=== PATIENT | female | born 1980 | race Caucasian/White ===

== ENCOUNTER 2016-09-01 00:05 | Emergency (ER) | payer MEDICAID ==
[2016-09-01 00:23] LABS: BILIRUBIN,URINE NEGATIVE (NEGATIVE); PH,URINE 6.5 PH (5.0-7.5)
[2016-09-01 00:24] LABS: HCG UR QUAL NEGATIVE; UA w/ MICROSCOPIC CHARGE YES
[2016-09-01 00:31] LABS: UR CULTURE IF IND INDICATED; WBC,URINE >25 /HPF (0-5)
--- NOTE | 2016-09-01 00:48 | ED Physician Documentation ---
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 Similar symptoms before: Has not had sx before Recently seen: Not recently seen - Additional information Additional information: c/o five days of pelvic/suprapubic pain, urinary urgency, frequency, and sensation of incomplete voiding Review of Systems Constitutional: denies: Fever GI: denies: Abdominal Pain, Nausea, Vomiting : reports: Dysuria, Frequency Musculoskeletal: denies: Back pain PD PAST MEDICAL HISTORY - Past Medical History Past Medical History: Yes Psych: Depression, Anxiety - Past Surgical History 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 - Present Medications Home Medications: Ambulatory Orders Medication Instructions Recorded Confirmed Sertraline [Zoloft] 1 tab PO DAILY 08/26/15 09/01/16 Nitrofurantoin [Macrobid] 100 mg PO BID #9 capsule 09/01/16 - Allergies Allergies/Adverse Reactions: Allergies Allergy/AdvReac Type Severity Reaction Status Date / Time No Known Drug Allergies Allergy Verified 09/01/16 00:07 - Social History Does the pt smoke?: Yes Smoking Status: Current every day smoker Does the pt drink ETOH?: Yes Does the pt have substance abuse?: No - Immunizations Immunizations are current?: Yes - POLST Patient has POLST: No PD ED PE NORMAL - Vitals Vital signs reviewed: Yes - General General: Alert and oriented X 3, No acute distress, Well developed/nourished - Abdomen Abdomen: Soft, Non tender - Back Back: No CVA TTP Results - Vitals Vitals: Vital Signs - 24 hr 09/01/16 09/01/16 00:08 01:20 Temperature 36.2 C L 36.5 C Heart Rate 86 79 Respiratory 16 15 Rate Blood Pressure 134/57 H 102/83 H O2 Saturation 99 99 Oxygen O2 Source Room air - Labs Labs: Laboratory Tests 09/01/16 00:15 Urine Color YELLOW Urine Clarity SL. CLOUDY Urine pH 6.5 Ur Specific [place] 1.010 Urine Protein TRACE Urine Glucose (UA) NEGATIVE Urine Ketones NEGATIVE Urine Occult Blood MODERATE H Urine Nitrite NEGATIVE Urine Bilirubin NEGATIVE Urine Urobilinogen 0.2 (NORMAL) Ur Leukocyte Esterase LARGE H Urine RBC 6-10 H Urine WBC >25 H Ur Squamous Epith Cells FEW Squamous Urine Bacteria Few Ur Microscopic Review INDICATED Urine Culture Comments INDICATED Urine HCG, Qual NEGATIVE PD MEDICAL DECISION MAKING - ED course Complexity details: reviewed results, considered differential, d/w patient Departure - Departure Disposition: 01 Home, Self Care Clinical Impression: Urinary tract infection Qualifiers: Urinary tract infection type: acute cystitis Hematuria presence: with hematuria Qualified Code(s): N30.01 - Acute cystitis with hematuria Condition: Good Instructions: ED UTI Cystitis Female Follow-Up: Nohemy Earl ARNP [Primary Care Provider] - (3-4 days if symptoms have not resolved) Prescriptions: Nitrofurantoin [Macrobid] 100 mg PO BID #9 capsule Discharge Date/Time: 09/01/16 01:24
[2016-09-01] MEDS ORDERED: NITROFURANTOIN MACRO 100 MG CAPSULE PO STA (01:16)
[2016-09-01] MEDS ORDERED: PHENAZOPYRIDINE 100 MG TABLET PO STA (01:17)
[2016-09-01] MEDS ORDERED: NITROFURANTOIN MACRO 100 MG CAPSULE PO ONE (01:19)
[2016-09-01 01:20] VITALS: BP 102/83
[2016-09-01] MEDS ORDERED: PHENAZOPYRIDINE 100 MG TABLET PO ONE (01:20)
== END 2016-09-01 01:24 | disposition home or self-care (01) ==
LOC: ED 00:05
DX: N30.01 Acute cystitis with hematuria (principal); F17.200 Nicotine dependence, unspecified, uncomplicated
CPT/HCPCS: 81001; 81025; 87077; 87086; 87181; 99283; A9270; 81003; 87491; 87591

== ENCOUNTER 2016-11-07 13:30 | Emergency (ER) | payer MEDICAID ==
[2016-11-07] MEDS ORDERED: BUPIVACAINE 0.5% PF 30 ML VIAL SUBQ STA (15:18)
[2016-11-07] MEDS ORDERED: KETOROLAC 60 MG/2 ML VIAL IM STA (15:18)
[2016-11-07] MEDS ORDERED: BUPIVACAINE 0.5% PF 30 ML VIAL ONE (16:04)
[2016-11-07] MEDS ORDERED: KETOROLAC 60 MG/2 ML VIAL ONE (16:04)
[2016-11-07] MEDS ORDERED: oxyCOD/ACETAMIN 5 MG/325 MG TABLET PO STA (16:57)
[2016-11-07] MEDS ORDERED: CYCLOBENZAPRINE 10 MG TABLET PO STA (16:57)
[2016-11-07] MEDS ORDERED: oxyCOD/ACETAMIN 5 MG/325 MG TABLET PO ONE (17:17)
[2016-11-07] MEDS ORDERED: CYCLOBENZAPRINE 10 MG TABLET PO ONE (17:17)
--- NOTE | 2016-11-07 17:44 | ED Physician Documentation ---
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 etc PMD sent her to ER for trigger pt injection Review of Systems Constitutional: denies: Fever, Chills Cardiac: denies: Chest pain / pressure Respiratory: denies: Dyspnea GI: denies: Abdominal Pain : denies: Incontinent, Now EGA Musculoskeletal: reports: Back pain Neurologic: denies: Focal weakness, Numbness Endocrine: denies: Easy bruising / bleeding Immunocompromised: denies: Immunocompromised PD PAST MEDICAL HISTORY - Past Medical History Psych: Depression, Anxiety - Past Surgical History 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 - Present Medications Home Medications: Ambulatory Orders Medication Instructions Recorded Confirmed Sertraline [Zoloft] 1 tab PO DAILY 08/26/15 09/01/16 Nitrofurantoin [Macrobid] 100 mg PO BID #9 capsule 09/01/16 Cyclobenzaprine [Flexeril] 10 mg PO TID PRN #20 tablet 11/07/16 Indomethacin [Indocin] 25 mg PO BIDWM PRN #20 capsule 11/07/16 Lidocaine Patch 5% [Lidoderm Patch] 1 each TOP DAILY PRN #10 patch 11/07/16 - Allergies Allergies/Adverse Reactions: Allergies Allergy/AdvReac Type Severity Reaction Status Date / Time No Known Drug Allergies Allergy Verified 09/01/16 00:07 - Social History Does the pt smoke?: Yes Smoking Status: Current every day smoker Does the pt drink ETOH?: Yes Does the pt have substance abuse?: No - Immunizations Immunizations are current?: Yes - POLST Patient has POLST: No PD ED PE NORMAL - Vitals Vital signs reviewed: Yes - General General: Alert and oriented X 3 - Neck Neck: Supple, no meningeal sign - Cardiac Cardiac: RRR - Respiratory Respiratory: No respiratory distress, Clear bilaterally - Abdomen Abdomen: Soft, Non tender, Other (no pulsatile mass) - Back Back: No spinal TTP (and no focal redness warmth or swelling) - Derm Derm: Normal color - Neuro Neuro: Alert and oriented 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, 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, No motor deficit, No sensory deficit, Other (hip flexion knee ext foot dorsi plantar and great toe ext all 5/ 5, patellar DTR 3/4 left and 2-/4 right but pt states prior surgery on knee, no clinus, neg SLR) Results - Vitals Vitals: Vital Signs - 24 hr 11/07/16 11/07/16 13:43 14:42 Temperature 36.6 C 36.2 C L Heart Rate 93 83 Respiratory 18 16 Rate Blood Pressure 116/75 107/67 O2 Saturation 98 100 Oxygen O2 Source Room air PD MEDICAL DECISION MAKING - ED course ED course: acute on chronic exac back pain no red flags no relief with toradol so also gave trigger pt injection one percocet and flexeril will dc with lido flexeril and indocin Departure - Departure Disposition: 01 Home, Self Care Clinical Impression: Back pain Qualifiers: Back pain location: low back pain Chronicity: acute Back pain laterality: unspecified Sciatica presence: with sciatica Sciatica laterality: sciatica of right side Qualified Code(s): M54.41 - Lumbago with sciatica, right side Condition: Good Instructions: ED Sciatica, ED Low Back Pain Injury Follow-Up: Nohemy Earl LEAD DRIVER [Primary Care Provider] - Prescriptions: Cyclobenzaprine [Flexeril] 10 mg PO TID PRN #20 tablet PRN Reason: Spasms Indomethacin [Indocin] 25 mg PO BIDWM PRN #20 capsule PRN Reason: Pain Lidocaine Patch 5% [Lidoderm Patch] 1 each TOP DAILY PRN #10 patch PRN Reason: Pain Forms: Activity restrictions
[2016-11-07 18:13] VITALS: BP 122/67
== END 2016-11-07 18:04 | disposition home or self-care (01) ==
LOC: ED 13:30
DX: M54.41 Lumbago with sciatica, right side (principal); G89.29 Other chronic pain; F17.200 Nicotine dependence, unspecified, uncomplicated
CPT/HCPCS: 20552; 96372; 99283; A9270

== ENCOUNTER 2017-01-23 18:01 | Emergency (ER) | payer MEDICAID ==
--- NOTE | 2017-01-23 19:06 | ED Physician Documentation ---
PD HPI URI - Stated complaint Stated Complaint: CHEST PX - Chief complaint Chief Complaint: Resp - History obtained from History obtained from: Patient - History of Present Illness Timing - onset: How many weeks ago (2) Timing duration: Weeks (2) Timing details: Gradual onset, Still present (had URI symptoms head and chest, then improving with some cough still. Now with cough worsening over few days, with purulent sputum and harsh cough.) Associated symptoms: Productive cough, Chest pain, Dyspnea. No: Fever, Chills, Sore throat, Hemoptysis, NVD, Bilateral edema Contributing factors: No: Sick contact, Travel, Immunocompromised Similar symptoms before: Has not had sx before Recently seen: Not recently seen Review of Systems Constitutional: reports: Chills, Myalgias. denies: Fever Nose: reports: Congestion. 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 - Present Medications Home Medications: Ambulatory Orders Medication Instructions Recorded Confirmed Sertraline [Zoloft] 1 tab PO DAILY 08/26/15 01/23/17 Albuterol Sulf [Ventolin Hfa 1 - 2 puffs INH Q4HR PRN #1 inhaler 01/23/17 Inhaler] Cephalexin [Keflex] 500 mg PO TID #21 capsule 01/23/17 Dexamethasone [Decadron] 4 mg PO DAILY #5 tablet 01/23/17 guaiFENesin/CODEINE [Robitussin AC] 10 ml PO Q6H PRN #240 ml 01/23/17 - Allergies Allergies/Adverse Reactions: Allergies Allergy/AdvReac Type Severity Reaction Status Date / Time No Known Drug Allergies Allergy Verified 09/01/16 00:07 - Social History Does the pt smoke?: Yes Smoking Status: Current every day smoker Does the pt drink ETOH?: Yes Does the pt have substance abuse?: No - Immunizations Immunizations are current?: Yes - POLST Patient has POLST: No PD ED PE NORMAL - Vitals Vital signs reviewed: Yes - General General: Alert and oriented X 3, No acute distress, Well developed/nourished - HEENT HEENT: Ears normal, Pharynx benign - Neck Neck: Supple, no meningeal sign, No adenopathy - Cardiac Cardiac: RRR, No murmur - Respiratory Respiratory: No: Clear bilaterally (some scattered wheezing sounds. No wet/ coarse sounds. ) - Abdomen Abdomen: Soft, Non tender - Back Back: No CVA TTP - Derm Derm: Normal color, Warm and dry, No rash - Extremities Extremities: No edema, No calf tenderness / cord - Neuro Neuro: Alert and oriented X 3, No motor deficit, Normal speech Results - Vitals Vitals: Oxygen O2 Source Room air - EKG (time done) 18:15 Rate: Rate (enter#) (68) Rhythm: NSR [place]: Normal Intervals: Normal CT QRS: Normal Ischemia: Normal ST segments. No: ST elevation c/w ischemia, ST depression, T wave inversion PD MEDICAL DECISION MAKING - ED course Complexity details: reviewed results, considered differential (uri initially with now worsening cough after 2 weeks, consider secondary infection. ), d/w patient Departure - Departure Disposition: 01 Home, Self Care Clinical Impression: Upper respiratory infection Qualifiers: URI type: unspecified URI Qualified Code(s): J06.9 - Acute upper respiratory infection, unspecified Condition: Stable Record reviewed to determine appropriate education?: Yes Instructions: ED Upper Resp Infec Abx Tx Follow-Up: Nohemy Earl ARNP [Primary Care Provider] - Prescriptions: Albuterol Sulf [Ventolin Hfa Inhaler] 1 - 2 puffs INH Q4HR PRN #1 inhaler PRN Reason: Shortness Of Air/Wheezing Cephalexin [Keflex] 500 mg PO TID #21 capsule Dexamethasone [Decadron] 4 mg PO DAILY #5 tablet guaiFENesin/CODEINE [Robitussin AC] 10 ml PO Q6H PRN #240 ml PRN Reason: Cough Comments: Continue with decreased smoking. In fact try to quit if he can. Use albuterol inhaler 2 puffs 4 times a day and extra times if needed for the wheezing and cough. Add cough medicine if needed. Use Decadron steroid anti-inflammatory for 5 more days to reduce bronchial inflammation. Use cephalexin as prescribed for potential bacterial infection given the duration and now worsening of your symptoms. Recheck if not improved over the next 3-5 days. Discharge Date/Time: 01/23/17 20:26
[2017-01-23] MEDS ORDERED: ALBUTEROL NEB 2.5 MG/3 ML INH STA (19:26)
[2017-01-23] MEDS ORDERED: DEXAMETHASONE 10 MG/ML VIAL PO STA (19:26)
[2017-01-23] MEDS ORDERED: CEPHALEXIN 250 MG CAPSULE PO STA (19:26)
[2017-01-23] MEDS ORDERED: guaiFENesin/CODEINE 5 ML UDC PO STA (19:26)
[2017-01-23 19:27] VITALS: BP 122/71
[2017-01-23] MEDS ORDERED: guaiFENesin/CODEINE 5 ML UDC ONE (19:36)
[2017-01-23] MEDS ORDERED: CEPHALEXIN 250 MG CAPSULE PO ONE (19:36)
[2017-01-23] MEDS ORDERED: DEXAMETHASONE 10 MG/ML VIAL ONE (19:36)
[2017-01-23] MEDS ORDERED: ALBUTEROL NEB 2.5 MG/3 ML INH ONE (19:46)
== END 2017-01-23 20:26 | disposition home or self-care (01) ==
LOC: ED 18:01
DX: J06.9 Acute upper respiratory infection, unspecified (principal); F17.200 Nicotine dependence, unspecified, uncomplicated
CPT/HCPCS: 93005; 94640; 99283; A9270; J7613

== ENCOUNTER 2017-04-23 13:42 | Emergency (ER) | payer MEDICAID ==
[2017-04-23] MEDS ORDERED: CYCLOBENZAPRINE 10 MG TABLET PO STA (14:38)
[2017-04-23] MEDS ORDERED: KETOROLAC 60 MG/2 ML VIAL IM STA (14:38)
[2017-04-23] MEDS ORDERED: LIDOCAINE PATCH 5% TOP STA (14:38)
--- NOTE | 2017-04-23 14:45 | ED Physician Documentation ---
History of Present Illness - Stated complaint Stated Complaint: BACK PX/FLU LIKE SX - Chief complaint Chief Complaint: Back Pain - Additonal information Additional information: hx from pt 36 y/o f hx of back pain - no fx HNP etc juts acts up sometimes has been seen for same in past txed with NSAIDS lido flexeril trigger pt injections etc yesterday developed GI sx (NVD subj fever myalgias like other people at work, no travel or bad food) and her back is acting up no numbness or [place]kan[place] no incontinence no DM or IVDA took zofran which helped GI sx Review of Systems Constitutional: denies: Fever Cardiac: denies: Chest pain / pressure Respiratory: denies: Dyspnea GI: reports: Abdominal Pain (upper), Nausea, Vomiting, Diarrhea : reports: Control (tubal). 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 - Present Medications Home Medications: Ambulatory Orders Medication Instructions Recorded Confirmed Sertraline [Zoloft] 1 tab PO DAILY 08/26/15 04/23/17 Cyclobenzaprine [Flexeril] 10 mg PO TID PRN #20 tablet 04/23/17 Indomethacin [Indocin] 25 mg PO TIDWM PRN #20 capsule 04/23/17 Lidocaine Patch 5% [Lidoderm Patch] 1 each TOP DAILY PRN #10 patch 04/23/17 Ondansetron Odt [Zofran] 4 mg TL Q6H PRN #10 tablet 04/23/17 - Allergies Allergies/Adverse Reactions: Allergies Allergy/AdvReac Type Severity Reaction Status Date / Time No Known Drug Allergies Allergy Verified 04/23/17 13:49 - Social History Does the pt smoke?: Yes Smoking Status: Current every day smoker Does the pt drink ETOH?: Yes Does the pt have substance abuse?: No - Immunizations Immunizations are current?: Yes - POLST Patient has POLST: No PD ED PE NORMAL - Vitals Vital signs reviewed: Yes - Cardiac Cardiac: RRR - Respiratory Respiratory: No respiratory distress, Clear bilaterally - Abdomen Abdomen: Soft, Other (mild upper abd [place] s peritoneal signs) - Derm Derm: Normal color - Neuro Neuro: Alert and oriented X 3, 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, No motor deficit, No sensory deficit, Other (neg SLR, no numbness or saddle anesthesia, no clonus, foot dorsi plantar great toe ext hip flex knee ext 5/5) Results - Vitals Vitals: Vital Signs - 24 hr 04/23/17 13:46 Temperature 36.8 C Heart Rate 98 Respiratory 20 Rate Blood Pressure 120/69 O2 Saturation 100 Oxygen O2 Source Room air - Labs Labs: Laboratory Tests 04/23/17 14:40 Urine Color YELLOW Urine Clarity CLEAR Urine pH 6.0 Ur Specific [place] 1.025 Urine Protein NEGATIVE Urine Glucose (UA) NEGATIVE Urine Ketones TRACE Urine Occult Blood TRACE-INTA Urine Nitrite NEGATIVE Urine Bilirubin NEGATIVE Urine Urobilinogen 0.2 (NORMAL) Ur Leukocyte Esterase NEGATIVE Ur Microscopic Review NOT INDICATED Urine Culture Comments NOT INDICATED Urine HCG, Qual NEGATIVE PD MEDICAL DECISION MAKING - ED course ED course: healthy not 36 y/o female with waht sounds like viral gastro and acute exac of ongoing LBP without neuro deficits or red flags for epidural abscess or cauda equina Departure - Departure Disposition: 01 Home, Self Care Clinical Impression: Gastroenteritis Back pain Qualifiers: Back pain location: low back pain Chronicity: unspecified Back pain laterality : unspecified Sciatica presence: without sciatica Qualified Code(s): M54.5 - Low back pain Condition: Good Instructions: ED Neck Back Pain General, ED Gastroenteritis Viral Prescriptions: Cyclobenzaprine [Flexeril] 10 mg PO TID PRN #20 tablet PRN Reason: Spasms Indomethacin [Indocin] 25 mg PO TIDWM PRN #20 capsule PRN Reason: back pain Lidocaine Patch 5% [Lidoderm Patch] 1 each TOP DAILY PRN #10 patch PRN Reason: Pain Ondansetron Odt [Zofran] 4 mg TL Q6H PRN #10 tablet PRN Reason: Nausea / Vomiting Forms: Activity restrictions
[2017-04-23 14:50] LABS: GLUCOSE, URINE (UA) NEGATIVE (NEGATIVE); KETONES,URINE (UA) TRACE mg/dL (NEGATIVE); LEUKOCYTE ESTERASE, URINE NEGATIVE (NEGATIVE); NITRITE,URINE NEGATIVE (NEGATIVE); OCCULT BLOOD,URINE TRACE-INTA (NEGATIVE); PROTEIN,URINE NEGATIVE (NEGATIVE); UROBILINOGEN,URINE 0.2 (NORMAL) E.U./dL (NORMAL)
[2017-04-23 14:55] LABS: BILIRUBIN,URINE NEGATIVE (NEGATIVE); CLARITY,URINE CLEAR (CLEAR); HCG UR QUAL NEGATIVE; ICTOTEST,URINE NEGATIVE
[2017-04-23 15:30] VITALS: BP 109/85
== END 2017-04-23 15:44 | disposition home or self-care (01) ==
LOC: ED 13:42
DX: K52.9 Noninfective gastroenteritis and colitis, unspecified (principal); M54.5 Low back pain; F17.200 Nicotine dependence, unspecified, uncomplicated
CPT/HCPCS: 81003; 81025; 96372; 99283; A9270; 81001; 87086

== ENCOUNTER 2017-10-15 14:16 | Emergency (ER) | payer MEDICAID ==
[2017-10-15 14:24] VITALS: BP 117/81
[2017-10-15] MEDS ORDERED: PROPARACAINE 0.5% OPHTH DROPS 15 ML RIGHTEYE STA (15:29)
--- NOTE | 2017-10-15 15:58 | ED Physician Documentation ---
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 - Present Medications Home Medications: Ambulatory Orders Medication Instructions Recorded Confirmed Sertraline [Zoloft] 2 tab PO DAILY 08/26/15 04/23/17 Erythromycin Base [Erythromycin] 1 applic OP Q4H #1 tub 10/15/17 - Allergies Allergies/Adverse Reactions: Allergies Allergy/AdvReac Type Severity Reaction Status Date / Time No Known Drug Allergies Allergy Verified 10/15/17 14:24 - Social History Does the pt smoke?: Yes Smoking Status: Current every day smoker Does the pt drink ETOH?: Yes Does the pt have substance abuse?: No - Immunizations Immunizations are current?: Yes - POLST Patient has POLST: No PD ED PE NORMAL - Vitals Vital signs reviewed: Yes - General General: Alert and oriented X 3 - HEENT HEENT: PERRL (R eye mildly injected, no dc now but was crusted earlier per pt, no FB even under lid, no abrasion with flourescein), Ears normal - Cardiac Cardiac: RRR - Respiratory Respiratory: No respiratory distress, Clear bilaterally Results - Vitals Vitals: Vital Signs - 24 hr 10/15/17 14:20 Temperature 36.8 C Heart Rate 85 Respiratory 14 Rate Blood Pressure 117/81 H O2 Saturation 98 Oxygen O2 Source Room air PD MEDICAL DECISION MAKING - Sepsis Event Vital Signs: Vital Signs - 24 hr 10/15/17 14:20 Temperature 36.8 C Heart Rate 85 Respiratory 14 Rate Blood Pressure 117/81 H O2 Saturation 98 Oxygen O2 Source Room air Departure - Departure Disposition: 01 Home, Self Care Clinical Impression: Conjunctivitis Qualifiers: Conjunctivitis type: acute Acute conjunctivitis type: unspecified Laterality: right Qualified Code(s): H10.31 - Unspecified acute conjunctivitis, right eye Condition: Good Instructions: ED Conjunctivitis Nonspecific Prescriptions: Erythromycin Base [Erythromycin] 1 applic OP Q4H #1 tub Forms: Activity restrictions
== END 2017-10-15 16:23 | disposition home or self-care (01) ==
LOC: ED 14:16
DX: H10.31 Unspecified acute conjunctivitis, right eye (principal); F17.200 Nicotine dependence, unspecified, uncomplicated
CPT/HCPCS: 99282; 99283; J3490

== ENCOUNTER 2017-12-03 14:14 | Emergency (ER) | payer MEDICAID ==
[2017-12-03 15:00] LABS: BASOPHILS % (AUTO) 0.4 %; EOSINOPHILS # (AUTO) 0.1 10^3/uL (0.0-0.7); EOSINOPHILS % (AUTO) 1.2 %; HGB - HEMOGLOBIN 12.5 g/dL (12.0-16.0); LYMPHOCYTES # (AUTO) 1.9 10^3/uL (1.5-3.5); LYMPHOCYTES % (AUTO) 26.1 %; MEAN CORPUSCULAR HEMOGLOBIN 30.3 pg (27.0-31.0); MEAN CORPUSCULAR HGB CONC 34.6 g/dL (32.0-36.0); MEAN CORPUSCULAR VOLUME 87.6 fL (81.0-99.0); MONOCYTES # (AUTO) 0.6 10^3/uL (0.0-1.0); NEUTROPHILS # (AUTO) 4.6 10^3/uL (1.5-6.6); NEUTROPHILS % (AUTO) 64.3 %; PLT - PLATELET COUNT 232 10^3/uL (130-450); RED BLOOD COUNT 4.14 10^6/uL (4.20-5.40); RED CELL DISTRIBUTION WIDTH 13.1 % (12.0-15.0); WHITE BLOOD COUNT 7.2 x10^3/uL (4.8-10.8)
--- NOTE | 2017-12-03 15:06 | XRAY Report ---
Procedure Date: 12/03/2017 Accession Number: [id number] / [id number] Procedure: XR - Chest 2 View X-Ray CPT Code: 48122 FULL RESULT: EXAM: CHEST RADIOGRAPHY EXAM DATE: 12/03/2017 02:46 PM. CLINICAL HISTORY: Chest pain. COMPARISON: Chest x-ray 05/20/2008. TECHNIQUE: 2 views. FINDINGS: Lungs/Pleura: No focal opacities evident. No pleural effusion. No pneumothorax. Normal volumes. Mediastinum: Heart and mediastinal contours are unremarkable. Other: None. IMPRESSION: Normal 2-view chest radiography. RADIA
[2017-12-03 15:11] LABS: ALBUMIN 3.8 g/dL (3.2-5.5); ALBUMIN/GLOBULIN RATIO 1.2 (1.0-2.2); BILIRUBIN,TOTAL 0.6 mg/dL (0.2-1.0); CALCIUM 9.1 mg/dL (8.5-10.3); CREATININE 1.1 mg/dL (0.4-1.0)
--- NOTE | 2017-12-03 15:42 | ED Physician Documentation ---
PD HPI CHEST PAIN - Stated complaint Stated Complaint: CHEST PAIN - Chief complaint Chief Complaint: Cardiac - History obtained from History obtained from: Patient - History of Present Illness Timing - onset: How many hours ago (2.5) Timing - onset during: Other (at work today) Timing - duration: Hours (2.5) Timing - details: Abrupt onset Pain level max: 10 Pain level now: 10 Quality: Aching Location: Right chest Radiation: Right upper extremity Improved by: Nothing Worsened by: Other (taking a deep breath or moving) Associated symptoms: Feeling faint / dizzy. No: Shortness of air, Diaphoresis, Nausea, Vomiting, Palpitations, Cough Similar symptoms before: Other (states similar symptoms a few days ago, resolved after about an hour) - Additional information Additional information: has a history of anxiety and panic attacks. Symptoms today started after a verbal argument with coworkers. She states it was a very heated argument. 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 - Present Medications Home Medications: Ambulatory Orders Medication Instructions Recorded Confirmed Sertraline [Zoloft] 2 tab PO DAILY 08/26/15 04/23/17 Erythromycin Base [Erythromycin] 1 applic OP Q4H #1 tub 10/15/17 LORazepam [Ativan] 0.5 mg PO Q6H PRN #7 tablet 12/03/17 - Allergies Allergies/Adverse Reactions: Allergies Allergy/AdvReac Type Severity Reaction Status Date / Time No Known Drug Allergies Allergy Verified 12/03/17 14:25 - Living Situation Living Arrangement: reports: At home - Social History Does the pt smoke?: Yes Smoking Status: Current every day smoker Does the pt drink ETOH?: Yes Does the pt have substance abuse?: No - Family History Family history: reports: Non contributory - Immunizations Immunizations are current?: Yes - POLST Patient has POLST: No PD ED PE NORMAL - Vitals Vital signs reviewed: Yes - General General: Alert and oriented X 3, Other (appears anxious) - HEENT HEENT: Moist mucous membranes - Neck Neck: Supple, no meningeal sign - Cardiac Cardiac: RRR, Strong equal pulses - Respiratory Respiratory: No respiratory distress, Clear bilaterally - Abdomen Abdomen: Soft, Non tender, Non distended - Back Back: No spinal TTP - Derm Derm: Warm and dry, No rash - Extremities Extremities: No edema, No calf tenderness / cord - Neuro Neuro: Alert and oriented X 3, No motor deficit, No sensory deficit Results - Vitals Vitals: Vital Signs - 24 hr 12/03/17 12/03/17 12/03/17 14:19 15:41 16:11 Temperature 36.7 C Heart Rate 94 71 82 Respiratory 18 14 18 Rate Blood Pressure 138/76 H 139/93 H 134/72 H O2 Saturation 100 100 99 Oxygen O2 Source Room air - EKG (time done) 1423 Rate: Rate (enter#) (92) Rhythm: NSR [place]: Normal Intervals: Normal DC QRS: Normal Ischemia: Normal ST segments - Labs Labs: Laboratory Tests 12/03/17 12/03/17 12/03/17 14:50 14:50 14:50 WBC 7.2 RBC 4.14 L Hgb 12.5 Hct 36.2 L MCV 87.6 MCH 30.3 MCHC 34.6 RDW 13.1 Plt Count 232 MPV 9.0 Neut # (Auto) 4.6 Lymph # (Auto) 1.9 [place] # (Auto) 0.6 Eos # (Auto) 0.1 Baso # (Auto) 0.0 Absolute Nucleated RBC 0.00 Nucleated RBC % 0.0 Sodium 135 Potassium 3.7 Chloride 101 Carbon Dioxide 26 Anion Gap 8.0 BUN 11 Creatinine 1.1 H Estimated GFR (MDRD) 56 L Glucose 99 Calcium 9.1 Total Bilirubin 0.6 AST 28 ALT 20 Alkaline Phosphatase 63 Troponin I < 0.04 Total Protein 7.0 Albumin 3.8 Globulin 3.2 Albumin/Globulin Ratio 1.2 Lipase 22 - Rads (name of study) cxr Radiology: Prelim report reviewed, EMP read contemporaneously, See rad report ( normal) PD MEDICAL DECISION MAKING - ED course Complexity details: reviewed results, re-evaluated patient, considered differential (No ST elevation [place], no aortic dissection, no PE, no tension pneumothorax, no aortic aneurysm), d/w patient ED course: Patient is a 37-year-old female who presents to the emergency department with chest pain after an argument with coworkers. Symptoms resolved with Ativan in the emergency department. No acute findings on laboratory testing, EKG or chest x-ray. Paresthesias is also resolved. We will treat her for anxiety and follow- up with her doctor. Patient counseled regarding signs and symptoms for which I believe and urgent re-evaluation would be necessary. Patient with good understanding of and agreement to plan and is comfortable going home at this time This document was made in part using voice recognition software. While efforts are made to proofread this document, sound alike and grammatical errors may occur. - Sepsis Event Vital Signs: Vital Signs - 24 hr 12/03/17 12/03/17 12/03/17 14:19 15:41 16:11 Temperature 36.7 C Heart Rate 94 71 82 Respiratory 18 14 18 Rate Blood Pressure 138/76 H 139/93 H 134/72 H O2 Saturation 100 100 99 Oxygen O2 Source Room air Departure - Departure Disposition: 01 Home, Self Care Clinical Impression: Anxiety Chest pain Qualifiers: Chest pain type: unspecified Qualified Code(s): R07.9 - Chest pain, unspecified Condition: Good Instructions: ED Stress React, ED Chest Pain NonCardiac Follow-Up: your,doctor in 1 week [Other] Prescriptions: LORazepam [Ativan] 0.5 mg PO Q6H PRN #7 tablet PRN Reason: Anxiety Comments: Return if you worsen. This should continue to improve today. Do not drive or operate heavy machinery while on ativan. Discharge Date/Time: 12/03/17 16:14
[2017-12-03] MEDS ORDERED: LORazepam 0.5 MG TABLET PO STA (15:56)
[2017-12-03 16:14] VITALS: BP 134/72
== END 2017-12-03 16:14 | disposition home or self-care (01) ==
LOC: ED 14:14
DX: F41.9 Anxiety disorder, unspecified (principal); R07.9 Chest pain, unspecified; F17.200 Nicotine dependence, unspecified, uncomplicated
CPT/HCPCS: 36415; 71046; 80053; 83690; 84484; 85025; 93005; 99283; A9270

== ENCOUNTER 2017-12-08 08:40 | Emergency (ER) | payer MEDICAID ==
[2017-12-08 08:52] VITALS: BP 117/78
--- NOTE | 2017-12-08 12:02 | ED Physician Documentation ---
PD HPI HEENT - Stated complaint Stated Complaint: MOUTH PX - Chief complaint Chief Complaint: Heent - History obtained from History obtained from: Patient - History of Present Illness Timing - onset: How many days ago (several) Timing - duration: Days Timing - details: Gradual onset, Still present Location: Tooth (right lower molar that has been broken/decayed is starting to get swelling and pain to it. Called Dentist and has appt for December.) Improves: Nothing Worsens: Swalllowing, Temperatures Associated symptoms: No: Fever, Congestion, Swollen nodes, Facial swelling Recently seen: Not recently seen Review of Systems Constitutional: denies: Fever, Chills, Myalgias Nose: denies: Rhinorrhea / runny nose, Congestion Throat: denies: Sore throat Respiratory: denies: Cough GI: denies: Nausea, Vomiting, Diarrhea Skin: denies: Rash, Lesions PD PAST MEDICAL HISTORY - Past Medical History Past Medical History: Yes Cardiovascular: None Respiratory: None Psych: Depression, Anxiety - Past Surgical History 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 - Present Medications Home Medications: Ambulatory Orders Medication Instructions Recorded Confirmed Sertraline [Zoloft] 2 tab PO DAILY 08/26/15 12/08/17 Erythromycin Base [Erythromycin] 1 applic OP Q4H #1 tub 10/15/17 12/08/17 LORazepam [Ativan] 0.5 mg PO Q6H PRN #7 tablet 12/03/17 12/08/17 Clindamycin HCl [Cleocin HCl] 300 mg PO TID #21 capsule 12/08/17 Ibuprofen [Motrin] 600 mg PO TID #30 tab 12/08/17 Tramadol HCl 50 mg PO Q6H PRN #15 tablet 12/08/17 - Allergies Allergies/Adverse Reactions: Allergies Allergy/AdvReac Type Severity Reaction Status Date / Time No Known Drug Allergies Allergy Verified 12/03/17 14:25 - Social History Does the pt smoke?: Yes Smoking Status: Current every day smoker Does the pt drink ETOH?: Yes Does the pt have substance abuse?: No - Immunizations Immunizations are current?: Yes - POLST Patient has POLST: No PD ED PE NORMAL - Vitals Vital signs reviewed: Yes - General General: Alert and oriented X 3, No acute distress, Well developed/nourished - HEENT HEENT: Pharynx benign. No: Dentition benign (teeth generally not too bad. There is a broken and decayed tooth right lower molar with swelling and tenderness of the gum. ) - Neck Neck: Supple, no meningeal sign, No adenopathy - Cardiac Cardiac: RRR, No murmur - Respiratory Respiratory: Clear bilaterally - Derm Derm: Normal color, Warm and dry - Neuro Neuro: Alert and oriented X 3, No motor deficit, Normal speech Results - Vitals Vitals: Oxygen O2 Source Room air PD MEDICAL DECISION MAKING - ED course Complexity details: considered differential, d/w patient - Sepsis Event Vital Signs: Oxygen O2 Source Room air Departure - Departure Disposition: Home, Self Care Clinical Impression: Dental abscess Condition: Stable Record reviewed to determine appropriate education?: Yes Instructions: ED Abscess Dental Prescriptions: Clindamycin HCl [Cleocin HCl] 300 mg PO TID #21 capsule Ibuprofen [Motrin] 600 mg PO TID #30 tab Tramadol HCl 50 mg PO Q6H PRN #15 tablet PRN Reason: Pain Comments: Rinse with antiseptic a few times a day to cleanse out the tooth socket. Use clindamycin as directed for a week for the infection. Ibuprofen 3 times a day for the inflammation. Add Tylenol and/or tramadol if needed for pain. Follow- up with the dentist as soon as available. That will be the definitive treatment for this after the infection clears, so it does not get reinfected. Discharge Date/Time: 12/08/17 12:28
[2017-12-08] MEDS ORDERED: CLINDAMYCIN 150 MG CAPSULE PO STA (12:21)
[2017-12-08] MEDS ORDERED: IBUPROFEN 600 MG TABLET PO STA (12:21)
== END 2017-12-08 12:28 | disposition home or self-care (01) ==
LOC: ED 08:40
DX: K04.7 Periapical abscess without sinus (principal); F17.200 Nicotine dependence, unspecified, uncomplicated
CPT/HCPCS: 99281; 99283; A9270

== ENCOUNTER 2018-05-15 20:26 | Emergency (ER) | payer MEDICAID ==
--- NOTE | 2018-05-15 22:02 | ED Physician Documentation ---
PD HPI HEENT - Stated complaint Stated Complaint: TOOTH PX - Chief complaint Chief Complaint: Heent - History obtained from History obtained from: Patient - History of Present Illness Timing - onset: How many days ago (4) Timing - duration: Days (4) Pain level now: 7 Location: Tooth Improves: Nothing Worsens: Swalllowing, Other (palpation) Recently seen: Not recently seen - Additional information Additional information: c/o 4 days of gradualy onset, gradually worsening right upper tooth pain Review of Systems Constitutional: denies: Fever Throat: reports: Dental pain / toothache PD PAST MEDICAL HISTORY - Past Medical History Past Medical History: No Cardiovascular: None Respiratory: None Neuro: None Endocrine/Autoimmune: None GI: None 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 : None HEENT: None Psych: Depression, Anxiety Musculoskeletal: None Derm: None - Past Surgical History 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 - Present Medications Home Medications: Ambulatory Orders Medication Instructions Recorded Confirmed Sertraline [Zoloft] 2 tab PO DAILY 08/26/15 12/08/17 Erythromycin Base [Erythromycin] 1 applic OP Q4H #1 tub 10/15/17 12/08/17 LORazepam [Ativan] 0.5 mg PO Q6H PRN #7 tablet 12/03/17 12/08/17 Clindamycin HCl [Cleocin HCl] 300 mg PO TID #21 capsule 12/08/17 Ibuprofen [Motrin] 600 mg PO TID #30 tab 12/08/17 Tramadol HCl 50 mg PO Q6H PRN #15 tablet 12/08/17 Clindamycin HCl [Clindamycin 300MG 300 mg PO Q6H #27 capsule 05/15/18 CAP] Ibuprofen 600 mg PO TID PRN #20 tablet 05/15/18 Tramadol HCl 50 mg PO Q6HR PRN #15 tablet 05/15/18 - Allergies Allergies/Adverse Reactions: Allergies Allergy/AdvReac Type Severity Reaction Status Date / Time No Known Drug Allergies Allergy Verified 05/15/18 20:39 - Social History Does the pt smoke?: Yes Smoking Status: Current every day smoker Does the pt drink ETOH?: Yes Does the pt have substance abuse?: No - Immunizations Immunizations are current?: Yes - POLST Patient has POLST: No PD ED PE NORMAL - Vitals Vital signs reviewed: Yes - General General: Alert and oriented X 3, No acute distress, Well developed/nourished PD ED PE EXPANDED - HEENT HEENT Visual: 1 - tenderness (tenderness to percussion; medial aspect of tooth is broken although the filling appears intact; there is no discharge or obvious swelling) Results - Vitals Vitals: Vital Signs - 24 hr 05/15/18 05/15/18 20:30 22:24 Temperature 37.0 C 36.5 C Heart Rate 84 75 Respiratory 16 18 Rate Blood Pressure 123/68 127/73 O2 Saturation 100 99 Oxygen O2 Source Room air PD MEDICAL DECISION MAKING - ED course Complexity details: reviewed old records, considered differential, d/w patient ED course: Patient requests non-narcotic rx for pain, as she has h/o addiction. I discussed Tramadol with her; I see that she was prescribed this on previous visit and she says she did well with this when it was prescribed at that time. Departure - Departure Disposition: Home, Self Care Clinical Impression: Pain, dental Condition: Good Instructions: ED Tooth Pain Prescriptions: Tramadol HCl 50 mg PO Q6HR PRN #15 tablet PRN Reason: Pain Clindamycin HCl [Clindamycin 300MG CAP] 300 mg PO Q6H #27 capsule Ibuprofen 600 mg PO TID PRN #20 tablet PRN Reason: Pain Comments: Follow up with a dentist, next available appointment Discharge Date/Time: 05/15/18 22:26
[2018-05-15] MEDS ORDERED: IBUPROFEN 600 MG TABLET PO STA (22:15)
[2018-05-15] MEDS ORDERED: CLINDAMYCIN 150 MG CAPSULE PO STA (22:15)
[2018-05-15] MEDS ORDERED: traMADol 50 MG TABLET PO STA (22:15)
[2018-05-15 22:26] VITALS: BP 127/73
== END 2018-05-15 22:26 | disposition home or self-care (01) ==
LOC: ED 20:26
DX: K08.89 Other specified disorders of teeth and supporting structures (principal); F17.200 Nicotine dependence, unspecified, uncomplicated
CPT/HCPCS: 99283; A9270

== ENCOUNTER 2018-06-06 20:53 | Emergency (ER) | payer MEDICAID ==
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
[2018-06-06] MEDS ORDERED: MELOXICAM 7.5 MG TABLET PO STA (22:20)
--- NOTE | 2018-06-06 22:50 | XRAY Report ---
Reason: R leg pain, h/o IM nikolai Procedure Date: 06/06/2018 Accession Number: [id number] / [id number] Procedure: XR - Femur 2V RT CPT Code: FULL RESULT: EXAM: RIGHT FEMUR RADIOGRAPHY EXAM DATE: 06/06/2018 10:17 PM. CLINICAL HISTORY: Right leg pain, history of intramedullary nikolai. COMPARISON: None. TECHNIQUE: 2 views. FINDINGS: Intramedullary nikolai with proximal and distal interlocking screws for internal fixation of the mid and distal femur fracture with chronic healed fracture deformity. No evidence for loosening. Alignment appears anatomical. No evidence for acute fracture. Adjacent soft tissue metallic foreign bodies in the thigh soft tissue. The right hip and knee joints appear within normal limits. No knee joint effusion. IMPRESSION: No acute findings are seen. See above. RADIA
[2018-06-06 23:05] VITALS: BP 125/79
== END 2018-06-06 23:05 | disposition home or self-care (01) ==
LOC: ED 20:53
DX: S76.111A Strain of right quadriceps muscle, fascia and tendon, initial encounter (principal); X58.XXXA Exposure to other specified factors, initial encounter; Y93.01 Activity, walking, marching and hiking; F17.200 Nicotine dependence, unspecified, uncomplicated
CPT/HCPCS: 73552; 99283; A9270

== ENCOUNTER 2020-03-16 10:06 | Emergency (ER) | payer MEDICAID ==
[2020-03-16 10:14] VITALS: BP 113/73
[2020-03-16 10:27] LABS: BILIRUBIN,URINE NEGATIVE (NEGATIVE); CLARITY,URINE CLEAR (CLEAR); GLUCOSE, URINE (UA) NEGATIVE (NEGATIVE); KETONES,URINE (UA) NEGATIVE (NEGATIVE); LEUKOCYTE ESTERASE, URINE NEGATIVE (NEGATIVE); NITRITE,URINE NEGATIVE (NEGATIVE); OCCULT BLOOD,URINE NEGATIVE (NEGATIVE); PROTEIN,URINE NEGATIVE (NEGATIVE); UROBILINOGEN,URINE 0.2 (NORMAL) E.U./dL (NORMAL)
[2020-03-16 10:28] LABS: HCG UR QUAL NEGATIVE
--- NOTE | 2020-03-16 16:03 | ED Physician Documentation ---
History of Present Illness - Stated complaint Stated Complaint: SIDE PX - Chief complaint Chief Complaint: Abd Pain - History obtained from History obtained from: Patient - Additonal information Additional information: 39-year-old woman presents with right lower back pain radiating to lower abdomen, starting upon waking this morning associated with loose stools. aching, constant, mild, no exac/relieving symptoms. Patient also complains of "Covid symptoms"'s "of sneezing, chills, mild headache that is frontal, nonradiating bilateral aching quality.Denies cough shortness of breath chest pain nausea vomiting diarrheaOr urinary symptoms. 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 - Present Medications Home Medications: Ambulatory Orders Medication Instructions Recorded Confirmed Sertraline [Zoloft] 2 tab PO DAILY 08/26/15 12/08/17 Erythromycin Base [Erythromycin] 1 applic OP Q4H #1 tub 10/15/17 12/08/17 LORazepam [Ativan] 0.5 mg PO Q6H PRN #7 tablet 12/03/17 12/08/17 Ibuprofen [Motrin] 600 mg PO TID #30 tab 12/08/17 Tramadol HCl 50 mg PO Q6H PRN #15 tablet 12/08/17 clindamycin HCL [Cleocin HCl] 300 mg PO TID #21 capsule 12/08/17 Clindamycin HCl [Clindamycin 300MG 300 mg PO Q6H #27 capsule 05/15/18 CAP] Ibuprofen 600 mg PO TID PRN #20 tablet 05/15/18 Tramadol HCl 50 mg PO Q6HR PRN #15 tablet 05/15/18 Meloxicam [Mobic] 15 mg PO DAILY PRN #20 tablet 06/06/18 - Allergies Allergies/Adverse Reactions: Allergies Allergy/AdvReac Type Severity Reaction Status Date / Time No Known Drug Allergies Allergy Verified 03/16/20 10:14 - Social History Does the pt smoke?: Yes Smoking Status: Current every day smoker Does the pt drink ETOH?: Yes Does the pt have substance abuse?: No - Immunizations Immunizations are current?: Yes - POLST Patient has POLST: No PD ED PE NORMAL - Vitals Vital signs reviewed: Yes - General General: Alert and oriented X 3 - HEENT HEENT: Atraumatic, PERRL, EOMI - Neck Neck: Supple, no meningeal sign - Cardiac Cardiac: RRR - Respiratory Respiratory: No respiratory distress - Abdomen Abdomen: Normal bowel sounds, Soft, Non tender, Non distended - Female Female : Deferred - Rectal Rectal: Deferred - Back Back: No CVA TTP - Derm Derm: Normal color - Extremities Extremities: No deformity - Neuro Neuro: Alert and oriented X 3 - Psych Psych: Normal mood, Normal affect Results - Vitals Vitals: Vital Signs - 24 hr 03/16/20 10:10 Temperature 36.8 C Heart Rate 77 Respiratory 18 Rate Blood Pressure 113/73 O2 Saturation 100 Oxygen O2 Source Room air - Labs Labs: Laboratory Tests 03/16/20 03/16/20 10:19 10:19 Urine Color YELLOW Urine Clarity CLEAR Urine pH 6.0 Ur Specific [place] 1.010 1.010 Urine Protein NEGATIVE Urine Glucose (UA) NEGATIVE Urine Ketones NEGATIVE Urine Occult Blood NEGATIVE Urine Nitrite NEGATIVE Urine Bilirubin NEGATIVE Urine Urobilinogen 0.2 (NORMAL) Ur Leukocyte Esterase NEGATIVE Ur Microscopic Review NOT INDICATED Urine Culture Comments NOT INDICATED Urine HCG, Qual NEGATIVE PD MEDICAL DECISION MAKING - ED course Complexity details: reviewed results, d/w patient ED course: 39-year-old woman presents with lower back pain radiating to the suprapubic region. no cva ttp on exam. patient with normal urinalysis. advised conservative management for MSK back pain. also with Covid-like symptoms. Routine swab sent patient will follow up results. Strict return precautions given. Follow-up PMD Departure - Departure Disposition: 01 Home, Self Care Clinical Impression: Back pain, Urinary frequency Condition: Good Instructions: ED Abdominal Pain Unkn Cause Comments: You have been seen in the emergency department for back pain and increased urinary frequency. Your urinalysis was normal. We have sent a Covid test and you should get your results in 2 days. Check the patient health portal on the [facility] website for your results. Return to the ED for any new or worsening symptoms. Discharge Date/Time: 03/16/20 11:40
== END 2020-03-16 11:40 | disposition home or self-care (01) ==
LOC: ED 10:06
DX: M54.5 Low back pain (principal); F17.200 Nicotine dependence, unspecified, uncomplicated; R35.0 Frequency of micturition; Z20.828 Contact with and (suspected) exposure to other viral communicable diseases
CPT/HCPCS: 80053; 81001; 81003; 81025; 83690; 85025; 87086; 99283; 99284

== ENCOUNTER 2022-02-01 13:41 | Emergency (ER) | payer MEDICAID ==
[2022-02-01 13:58] VITALS: BP 122/73
[2022-02-01] MEDS ORDERED: KETOROLAC 60 MG/2 ML VIAL IM STA (15:40)
[2022-02-01] MEDS ORDERED: SUMAtriptan 6 MG/0.5 ML VIAL SUBQ STA (15:40)
--- NOTE | 2022-02-01 15:41 | ED Physician Documentation ---
PD HPI HEADACHE - Stated complaint Stated Complaint: HEADACHE - Chief complaint Chief Complaint: Neuro - History obtained from History obtained from: Patient - Additional information Additional information: 41-year-old woman with no history of primary headache syndrome presents with a gradual onset headache starting 5 days ago. It is the worst headache of her life. She really feels like it is more in the eyeballs than anything else and has extreme light and sound sensitivity. No history of migraines. No fevers. No neck stiffness. Vision is normal albeit with photophobia. No chance of preg curly. 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 - Present Medications Home Medications: Ambulatory Orders Medication Instructions Recorded Confirmed Sertraline [Zoloft] 2 tab PO DAILY 08/26/15 12/08/17 Erythromycin Base [Erythromycin] 1 applic OP Q4H #1 tub 10/15/17 12/08/17 LORazepam [Ativan] 0.5 mg PO Q6H PRN #7 tablet 12/03/17 12/08/17 Ibuprofen [Motrin] 600 mg PO TID #30 tab 12/08/17 Tramadol HCl 50 mg PO Q6H PRN #15 tablet 12/08/17 clindamycin HCL [Cleocin HCl] 300 mg PO TID #21 capsule 12/08/17 Clindamycin HCl [Clindamycin 300MG 300 mg PO Q6H #27 capsule 05/15/18 CAP] Ibuprofen 600 mg PO TID PRN #20 tablet 05/15/18 Tramadol HCl 50 mg PO Q6HR PRN #15 tablet 05/15/18 Meloxicam [Mobic] 15 mg PO DAILY PRN #20 tablet 06/06/18 SUMAtriptan [Imitrex] 25 mg PO BID PRN #10 tablet 02/01/22 - Allergies Allergies/Adverse Reactions: Allergies Allergy/AdvReac Type Severity Reaction Status Date / Time No Known Drug Allergies Allergy Verified 02/01/22 13:58 - Social History Does the pt smoke?: Yes Smoking Status: Current every day smoker Does the pt drink ETOH?: Yes Does the pt have substance abuse?: No - Immunizations Immunizations are current?: Yes - POLST Patient has POLST: No PD ED PE NORMAL - Vitals Vital signs reviewed: Yes - General General: Alert and oriented X 3, Other (She is photophobic and wearing sunglasses but otherwise in no distress) - HEENT HEENT: PERRL, EOMI - Neck Neck: Supple, no meningeal sign, No bony TTP - Neuro Neuro: Alert and oriented X 3, system admin 2-12 intact, No motor deficit, No sensory deficit, Normal speech Eye Opening: Spontaneous Motor: Obeys Commands Verbal: Oriented GCS Score: 15 Results - Vitals Vitals: Vital Signs - 24 hr 02/01/22 13:54 Temperature 36.0 C L Heart Rate 67 Respiratory 16 Rate Blood Pressure 122/73 O2 Saturation 100 Oxygen O2 Source Room air PD MEDICAL DECISION MAKING - ED course ED course: 41-year-old woman with gradual onset headache of a few days duration that sounds very migrainous but without a history of same. After the administration of Toradol and Imitrex her pain was much better. CT of the head interpreted contemporaneously by me was negative. Nothing in the history or physical to suggest subarachnoid hemorrhage or infectious process. Departure - Departure Disposition: 01 Home, Self Care Clinical Impression: Migraine Condition: Good Record reviewed to determine appropriate education?: Yes Instructions: Imitrex, ED Headache Migraine Prescriptions: SUMAtriptan [Imitrex] 25 mg PO BID PRN #10 tablet PRN Reason: Headache Comments: Call your doctor to arrange a follow-up appointment, make the next available appointment. In the interim, return anytime if worse or if new symptoms develop. Discharge Date/Time: 02/01/22 16:50
--- NOTE | 2022-02-01 16:27 | CT Report ---
PROCEDURE: HEAD WO INDICATIONS: WHOL TECHNIQUE: Noncontrast 4.5 mm thick angled axial sections acquired from the foramen magnum to the vertex. For r adiation dose reduction, the following was used: automated exposure control, adjustment of mA and/or kV according to patient size. COMPARISON: None. FINDINGS: Image quality: Excellent. CSF spaces: Basal cisterns are patent. No extra-axial fluid collections. Ventricles are normal in size and shape. Brain: No midline shift. No intracranial masses or hemorrhage. [place]-white matter interface is norm al. Skull and face: Calvarium and visualized facial bones are intact, without suspicious lesions. Sinuses: Visualized sinuses and mastoids are clear. IMPRESSION: No acute intracranial abnormality. Reviewed by: Tu Fairbanks MD on 02/01/2022 4:25 PM PDT Approved by: Tu Fairbanks MD on 02/01/2022 4:25 PM PDT Station ID: [id number]
== END 2022-02-01 16:50 | disposition home or self-care (01) ==
LOC: ED 13:41
DX: G43.909 Migraine, unspecified, not intractable, without status migrainosus (principal); F17.200 Nicotine dependence, unspecified, uncomplicated
CPT/HCPCS: 96372; 99283; 99284

== ENCOUNTER 2023-07-31 12:39 | Outpatient (CLI) | payer OTHER ==
[2023-07-31 12:47] LABS: BASOPHILS % (AUTO) 0.8 %; EOSINOPHILS # (AUTO) 0.1 10^3/uL (0.0-0.7); EOSINOPHILS % (AUTO) 2.3 %; HCT - HEMATOCRIT 39.6 % (37.0-47.0); HGB - HEMOGLOBIN 12.9 g/dL (12.0-16.0); LYMPHOCYTES # (AUTO) 1.8 10^3/uL (1.5-3.5); LYMPHOCYTES % (AUTO) 34.5 %; MEAN CORPUSCULAR HEMOGLOBIN 29.5 pg (27.0-31.0); MEAN CORPUSCULAR HGB CONC 32.6 g/dL (32.0-36.0); MEAN CORPUSCULAR VOLUME 90.6 fL (81.0-99.0); MEAN PLATELET VOLUME 10.8 fL (7.9-10.8); MONOCYTES # (AUTO) 0.4 10^3/uL (0.0-1.0); MONOCYTES % (AUTO) 7.8 %; NEUTROPHILS # (AUTO) 2.8 10^3/uL (1.5-6.6); NEUTROPHILS % (AUTO) 54.4 %; PLT - PLATELET COUNT 222 10^3/uL (130-450); RED BLOOD COUNT 4.37 10^6/uL (4.20-5.40); RED CELL DISTRIBUTION WIDTH 12.8 % (12.0-15.0); WHITE BLOOD COUNT 5.1 x10^3/uL (4.8-10.8)
[2023-07-31 13:08] LABS: ALBUMIN 4.3 g/dL (3.2-5.5); ALBUMIN/GLOBULIN RATIO 1.5 (1.0-2.2); BILIRUBIN,TOTAL 0.4 mg/dL (0.2-1.0); CALCIUM 9.8 mg/dL (8.5-10.3); CREATININE 0.7 mg/dL (0.6-1.3); TOTAL PROTEIN 7.2 g/dL (6.4-8.9)
--- NOTE | 2023-07-31 19:33 | XRAY Report ---
PROCEDURE: Hand 3+V BL INDICATIONS: ILATERAL CARPEL TUNNEL SYNDROM/HAND JOINT PAIN TECHNIQUE: 3 views of the bilateral hand(s) acquired. COMPARISON: None. FINDINGS: Bones: No fractures or dislocations. No suspicious bony lesions. The proximal phalanx of the fifth finger of the right hand is quite small. There is less than half the length of the proximal phalanx o f the fifth finger of the left hand. Soft tissues: No suspicious soft tissue calcifications or masses. IMPRESSION: No acute bony abnormality. Proximal phalanx of fifth finger of right hand is quite small. Reviewed by: Jorge Yoo MD on 07/31/2023 7:32 PM PDT Approved by: Jorge Yoo MD on 07/31/2023 7:32 PM PDT Station ID: [id number]
== END 2023-07-31 12:40 | disposition home or self-care (01) ==
LOC: LAB 12:39 → DI 12:40
PROVIDERS: ATTEND Physician Assistant
DX: G56.03 Carpal tunnel syndrome, bilateral upper limbs (principal); M79.643 Pain in unspecified hand; Z00.00 Encounter for general adult medical examination without abnormal findings
CPT/HCPCS: 36415; 80053; 85025